=== PATIENT | female | born 1950 | race Two or more races ===

== ENCOUNTER 2020-02-07 13:35 | Inpatient (IN) | payer OTHER ==
[~2020-02-07] VITALS: Ht 167.6 cm; Wt 65.4 kg
[2020-02-07] MEDS ORDERED: dilTIAZem 25 MG/5 ML VIAL IV ONE (14:15)
[2020-02-07] MEDS ORDERED: methylPREDNISolone SOD SUCC 125 MG/2 ML VL IV ONE (14:15)
[2020-02-07] MEDS ORDERED: ALBUTEROL SULF 2.5 MG/0.5ML(0.5%) NEB SOLN HHN ONE (14:15)
[2020-02-07] MEDS ORDERED: IPRATROPIUM BROM 0.5 MG/2.5ML INH SOL HHN ONE (14:15)
[2020-02-07] MEDS ORDERED: AZITHROMYCIN 500MG/ 250ML 250 ML IV ONE (14:15)
[2020-02-07 14:23] LABS: Hematocrit 45.6 % (36.0-46.0); Hemoglobin 15.1 g/dL (12.2-16.2); Mean Corpuscular Hemoglobin 28.5 pg (28.0-32.0); Mean Corpuscular Hgb Conc. 33.1 g/dL (32.0-36.0); Mean Corpuscular Volume 86.2 fL (80.0-100.0); Platelet Count (auto) 185 10^3/uL (140-450); Red Blood Cells 5.29 10^6/uL (4.0-5.20); Red Cell Distribution Width 15.6 % (11.8-14.3); White Blood Cell 18.5 10^3/uL (4.4-10.8)
[2020-02-07 14:24] LABS: Albumin 3.8 g/dL (3.4-5.0); Anion Gap 12 (5-15); Blood Urea Nitrogen 30 mg/dL (7-18); Carbon Dioxide 24 mmol/L (21-32); Chloride 96 mmol/L (98-107); Glucose 137 mg/dL (74-106); Potassium 3.8 mmol/L (3.5-5.1); Sodium 132 mmol/L (136-145)
[2020-02-07 14:25] LABS: Basophils % (manual) 0 (0.0-2.0); Blast Cells 0; Eosinophils % (manual) 0 (0-7); Myelocytes % 0; Promyelocytes % 0; Reactive Lymphocytes 0
[2020-02-07 14:26] LABS: Alanine Aminotransferase 37 U/L (13-56); Aspartate Aminotransferase 65 U/L (15-37); GFR African American 39 mL/min; GFR Non-African American 32 mL/min
[2020-02-07 14:30] LABS: Alkaline Phosphatase 141 U/L (45-117); Bilirubin, Total 1.2 mg/dL (0.2-1.0); Total Protein 8.1 g/dL (6.4-8.2)
[2020-02-07 14:35] LABS: Lactic Acid w/Reflex 4.5 mmol/L (0.4-2.0)
[2020-02-07 14:37] LABS: INR 1.19 (0.9-1.15)
[2020-02-07] MEDS ORDERED: NITROGLYCERIN 0.4 MG SL TAB SL PRN (15:30)
[2020-02-07] MEDS ORDERED: MORPHINE SULF INJ 2 MG/ML SYRINGE 1ML IV PRN (15:30)
[2020-02-07 15:56] VITALS: BP 106/78
[2020-02-07 16:44] LABS: Band Neutrophils % (manual) 8; Lymphocytes % (manual) 3 (10.0-50.0); Metamyelocytes % 2; Monocytes % (manual) 2 (0-12)
[2020-02-07] MEDS ORDERED: ROFL1TAB2 PO (17:13)
[2020-02-07] MEDS ORDERED: LISI-706 PO (17:13)
[2020-02-07] MEDS ORDERED: ROSU5TAB5 PO (17:13)
[2020-02-07] MEDS ORDERED: ALBUAER3 IN (17:13)
[2020-02-07] MEDS ORDERED: FLUT1AER3 IN (17:13)
[2020-02-07] MEDS ORDERED: ZINC220C8 PO (17:15)
[2020-02-07] MEDS ORDERED: POM IN (17:18)
[2020-02-07 18:20] VITALS: BP 126/76
[2020-02-07 18:49] VITALS: BP 125/76
[2020-02-07] MEDS ORDERED: THIAMINE 100mg/ml INJ (200mg/2ml VIAL) IV ONE (19:00)
[2020-02-07] MEDS ORDERED: MORPHINE SULFATE 4 MG/ML SYR/VIAL IV PRN (19:00)
[2020-02-07] MEDS ORDERED: PIPERACILLIN-TAZOB 3.375GM 100 ML IV ONE (19:00)
[2020-02-07] MEDS ORDERED: VANCOMYCIN PER PHARMACY 0 MG IV SCH (19:00)
[2020-02-07] MEDS ORDERED: dilTIAZem 120MG ER CAP PO ONE (19:00)
[2020-02-07] MEDS ORDERED: LACTATED RINGER'S 1,000 ML IV ONE (19:00)
[2020-02-07] MEDS ORDERED: VANCOMYCIN 1GM/250ML 250 ML IV ONE (19:30)
[2020-02-07 20:00] LABS: Albumin 3.4 g/dL (3.4-5.0); Anion Gap 9 (5-15); Blood Urea Nitrogen 36 mg/dL (7-18); Calcium 8.2 mg/dL (8.5-10.1); Carbon Dioxide 25 mmol/L (21-32); Chloride 100 mmol/L (98-107); Glucose 132 mg/dL (74-106); Magnesium 2.3 mg/dL (1.6-2.6); Potassium 3.3 mmol/L (3.5-5.1); Sodium 134 mmol/L (136-145)
[2020-02-07 20:04] LABS: Lactic Acid w/Reflex 2.6 mmol/L (0.4-2.0)
[2020-02-07 20:05] LABS: INR 1.14 (0.9-1.15); Partial Thromboplastin Time 33.5 sec (23.0-31.2)
[2020-02-07 20:11] LABS: Alanine Aminotransferase 54 U/L (13-56); Alkaline Phosphatase 114 U/L (45-117); Aspartate Aminotransferase 74 U/L (15-37); BUN/Creatinine Ratio 22.6; Bilirubin, Total 0.8 mg/dL (0.2-1.0); GFR African American 41 mL/min; GFR Non-African American 34 mL/min; Lactate Dehydrogenase 264 U/L (84-246); Total Protein 7.2 g/dL (6.4-8.2)
[2020-02-07 20:29] LABS: CRP High Sensitivity > 19 mg/dL (< 0.3)
[2020-02-07] MEDS: SODIUM CHLORIDE 0.9% 1,000 ML IV SCH (20:32)
[2020-02-07] MEDS: ACETAMINOPHEN 325 MG TAB PO PRN (20:33)
[2020-02-07 22:00] VITALS: BP 117/71
[2020-02-07] MEDS ORDERED: BUDESONIDE (INHALATION) 180 MCG IH IN SCH (22:00)
[2020-02-07] MEDS: ALBUTEROL SULF HFA 90MCG INH 200DOSE IN SCH (22:00)
[2020-02-07] MEDS: ATORVASTATIN 20 MG TAB PO SCH (22:06)
[2020-02-07] MEDS: methylPREDNISolone SOD SUCC 40 MG/ML VL IV SCH (22:06)
[2020-02-08] MEDS: PIPERACILLIN-TAZOB 3.375GM 100 ML IV SCH ×5 (00:46→23:08)
[2020-02-08 01:59] LABS: Urine Bacteria FEW /hpf (None Seen); Urine Blood Negative /uL (Negative); Urine Hyaline Cast MOD /lpf (0 - 2); Urine Specific Gravity 1.011 (1.001-1.035); Urine WBC 5 /hpf (0 - 5)
[2020-02-08 02:07] VITALS: BP 106/72
[2020-02-08] MEDS ORDERED: METOPROLOL TARTRATE 1MG/1ML-5ML VIAL IV SCH ×2 (02:45→07:00)
[2020-02-08 04:54] VITALS: BP 95/62
[2020-02-08] MEDS: methylPREDNISolone SOD SUCC 40 MG/ML VL IV SCH ×3 (05:48→20:42)
[2020-02-08] MEDS: ACETAMINOPHEN 325 MG TAB PO PRN ×2 (05:50→17:06)
[2020-02-08] MEDS: ALBUTEROL SULF HFA 90MCG INH 200DOSE IN SCH (06:00)
[2020-02-08 07:25] LABS: Hematocrit 42.8 % (36.0-46.0); Hemoglobin 14.2 g/dL (12.2-16.2); Mean Corpuscular Hemoglobin 28.6 pg (28.0-32.0); Mean Corpuscular Hgb Conc. 33.2 g/dL (32.0-36.0); Mean Corpuscular Volume 86.2 fL (80.0-100.0); Platelet Count (auto) 112 10^3/uL (140-450); Red Blood Cells 4.96 10^6/uL (4.0-5.20); Red Cell Distribution Width 15.6 % (11.8-14.3); White Blood Cell 17.2 10^3/uL (4.4-10.8)
[2020-02-08 07:31] LABS: Band Neutrophils % (manual) 0; Basophils % (manual) 0 (0.0-2.0); Blast Cells 0; Eosinophils % (manual) 0 (0-7); Metamyelocytes % 0; Myelocytes % 0; Promyelocytes % 0; Reactive Lymphocytes 0
[2020-02-08 07:44] LABS: Lymphocytes % (manual) 8 (10.0-50.0); Monocytes % (manual) 4 (0-12)
[2020-02-08 07:49] LABS: Albumin 3.1 g/dL (3.4-5.0); BUN/Creatinine Ratio 28.8; Calcium 8.5 mg/dL (8.5-10.1)
[2020-02-08 07:53] LABS: Bilirubin, Total 0.6 mg/dL (0.2-1.0); Total Protein 6.9 g/dL (6.4-8.2)
[2020-02-08] MEDS: SODIUM CHLORIDE 0.9% 1,000 ML IV SCH ×2 (08:20→20:42)
[2020-02-08 09:00] VITALS: BP 96/71
[2020-02-08] MEDS ORDERED: ASCORBIC ACID 1,000 MG TAB PO SCH (10:00)
[2020-02-08] MEDS ORDERED: LISINOPRIL 5 MG TAB PO SCH (10:00)
[2020-02-08] MEDS ORDERED: ENOXAPARIN SOD 60 MG/0.6 ML SYRINGE SC SCH (10:00)
[2020-02-08] MEDS ORDERED: ASCORBIC ACID 500 MG TAB PO SCH (10:00)
[2020-02-08] MEDS ORDERED: CHOLECALCIFEROL (VITD3) 2,000 UNIT CAP PO SCH (10:00)
[2020-02-08] MEDS ORDERED: ZINC SULFATE 220mg CAP or TAB PO SCH (10:00)
[2020-02-08] MEDS ORDERED: CHOLECALCIFEROL (VITD3) 1,000UNIT=25mCg TAB PO SCH (10:00)
[2020-02-08] MEDS ORDERED: ALBUTEROL SULF 2.5 MG/0.5ML(0.5%) NEB SOLN NEB PRN ×2 (10:15→14:30)
[2020-02-08] MEDS ORDERED: IPRATROPIUM BROM 0.5 MG/2.5ML INH SOL NEB PRN (10:15)
[2020-02-08] MEDS: FAMOTIDINE (10MG/ML) 2ML VL IV SCH (10:21)
[2020-02-08] MEDS: THIAMINE 100mg/ml INJ (200mg/2ml VIAL) IV SCH (10:22)
[2020-02-08] MEDS: dilTIAZem 120MG ER CAP PO SCH (10:23)
[2020-02-08 13:00] VITALS: BP 119/53
[2020-02-08] MEDS ORDERED: DIGOXIN (250MCG/ML) 2 ML AMPULE IV ONE (14:00)
[2020-02-08] MEDS ORDERED: VANCOMYCIN 1GM/250ML 250 ML IV ONE (16:00)
[2020-02-08 17:00] VITALS: BP 100/71
[2020-02-08] MEDS: LEVALBUTEROL HCL 1.25 MG/3 ML NEB NEB SCH (18:51)
[2020-02-08] MEDS: IPRATROPIUM BROM 0.5 MG/2.5ML INH SOL NEB SCH (18:51)
[2020-02-08] MEDS: ATORVASTATIN 20 MG TAB PO SCH (20:42)
[2020-02-08] MEDS: METOPROLOL TARTRATE 25 MG TAB PO SCH (20:43)
[2020-02-08 22:00] VITALS: BP 109/65
[2020-02-08] MEDS: guaiFENesin-DM 100/10mg/5ml SYR PO PRN (23:08)
[2020-02-09] MEDS: LEVALBUTEROL HCL 1.25 MG/3 ML NEB NEB SCH ×4 (00:45→19:18)
[2020-02-09] MEDS: IPRATROPIUM BROM 0.5 MG/2.5ML INH SOL NEB SCH ×4 (00:45→19:18)
[2020-02-09 05:11] VITALS: BP 119/75
[2020-02-09 05:49] LABS: Hematocrit 42.7 % (36.0-46.0); Hemoglobin 14.3 g/dL (12.2-16.2); Mean Corpuscular Hgb Conc. 33.6 g/dL (32.0-36.0); Mean Corpuscular Volume 86.2 fL (80.0-100.0); Platelet Count (auto) 140 10^3/uL (140-450); Red Blood Cells 4.95 10^6/uL (4.0-5.20); Red Cell Distribution Width 15.3 % (11.8-14.3); White Blood Cell 18.9 10^3/uL (4.4-10.8)
[2020-02-09] MEDS: PIPERACILLIN-TAZOB 3.375GM 100 ML IV SCH ×3 (06:11→18:00)
[2020-02-09 06:18] LABS: BUN/Creatinine Ratio 34.8; Calcium 8.3 mg/dL (8.5-10.1)
[2020-02-09 06:45] LABS: Basophils % (manual) 0 (0.0-2.0); Blast Cells 0; Eosinophils % (manual) 0 (0-7); Metamyelocytes % 0; Myelocytes % 0; Promyelocytes % 0; Reactive Lymphocytes 0
[2020-02-09] MEDS ORDERED: dilTIAZem 25 MG/5 ML VIAL IV ONE (07:00)
[2020-02-09 07:33] LABS: Band Neutrophils % (manual) 1; Lymphocytes % (manual) 6 (10.0-50.0); Monocytes % (manual) 5 (0-12)
[2020-02-09 09:03] VITALS: BP 133/86
[2020-02-09] MEDS: METOPROLOL TARTRATE 25 MG TAB PO SCH ×2 (09:11→21:22)
[2020-02-09] MEDS: ENOXAPARIN SOD 60 MG/0.6 ML SYRINGE SC SCH ×2 (09:13→21:22)
[2020-02-09] MEDS: dilTIAZem 120MG ER CAP PO SCH (09:13)
[2020-02-09] MEDS: methylPREDNISolone SOD SUCC 40 MG/ML VL IV SCH ×2 (09:13→21:22)
[2020-02-09] MEDS: FAMOTIDINE (10MG/ML) 2ML VL IV SCH (09:13)
[2020-02-09] MEDS: THIAMINE 100mg/ml INJ (200mg/2ml VIAL) IV SCH (09:14)
[2020-02-09] MEDS: DOXYCYCLINE 100MG/250ML 250 ML IV SCH ×2 (10:00→21:32)
[2020-02-09] MEDS: SODIUM CHLORIDE 0.9% 1,000 ML IV SCH (11:00)
[2020-02-09 13:00] VITALS: BP 122/68
[2020-02-09 16:53] VITALS: BP 126/76
[2020-02-09] MEDS: ATORVASTATIN 20 MG TAB PO SCH (21:22)
[2020-02-09 22:00] VITALS: BP 128/72
[2020-02-10] VITALS (12 sets, daily range): BP systolic 118–145; BP diastolic 60–81
[2020-02-10] MEDS: PIPERACILLIN-TAZOB 3.375GM 100 ML IV SCH ×5 (00:06→23:48)
[2020-02-10] MEDS: SODIUM CHLORIDE 0.9% 1,000 ML IV SCH ×2 (00:20→14:33)
[2020-02-10] MEDS: IPRATROPIUM BROM 0.5 MG/2.5ML INH SOL NEB SCH ×4 (03:34→18:52)
[2020-02-10] MEDS: LEVALBUTEROL HCL 1.25 MG/3 ML NEB NEB SCH ×4 (03:34→18:52)
[2020-02-10 06:19] LABS: Basophils # (auto) 0 10 ^3/uL (0-0.2); Basophils % (auto) 0.1 % (0.0-2.0); Eosinophils # (auto) 0 10 ^3/uL (0-0.8); Hematocrit 41.7 % (36.0-46.0); Hemoglobin 13.5 g/dL (12.2-16.2); Lymphocytes # (auto) 0.2 10 ^3/uL (0.4-5.4); Lymphocytes % (auto) 1.2 % (10.0-50.0); Mean Corpuscular Hemoglobin 28.2 pg (28.0-32.0); Mean Corpuscular Hgb Conc. 32.5 g/dL (32.0-36.0); Monocytes # (auto) 0.9 10 ^3/uL (0-1.3); Monocytes % (auto) 6.2 % (0.0-12.0); Neutrophils # (auto) 14.1 10 ^3/uL (1.6-8.6); Neutrophils % (auto) 92.5 % (37.0-80.0); Nucleated Red Blood Cells % 0.2 %; Platelet Count (auto) 156 10^3/uL (140-450); Red Blood Cells 4.79 10^6/uL (4.0-5.20); Red Cell Distribution Width 15.7 % (11.8-14.3); White Blood Cell 15.2 10^3/uL (4.4-10.8)
[2020-02-10 06:32] LABS: Albumin 3.1 g/dL (3.4-5.0); Calcium 8.8 mg/dL (8.5-10.1); Potassium 4.7 mmol/L (3.5-5.1)
[2020-02-10 06:33] LABS: BUN/Creatinine Ratio 38.9
[2020-02-10 06:46] LABS: Bilirubin, Total 0.4 mg/dL (0.2-1.0); Total Protein 7.4 g/dL (6.4-8.2)
[2020-02-10] MEDS: DOXYCYCLINE 100MG/250ML 250 ML IV SCH ×2 (09:31→21:13)
[2020-02-10] MEDS: FAMOTIDINE (10MG/ML) 2ML VL IV SCH (09:31)
[2020-02-10] MEDS: methylPREDNISolone SOD SUCC 40 MG/ML VL IV SCH ×2 (09:31→20:51)
[2020-02-10] MEDS: METOPROLOL TARTRATE 25 MG TAB PO SCH ×2 (09:31→20:50)
[2020-02-10] MEDS: ENOXAPARIN SOD 60 MG/0.6 ML SYRINGE SC SCH ×2 (09:32→20:50)
[2020-02-10] MEDS ORDERED: DIGOXIN 0.125 MG TAB PO SCH (10:00)
[2020-02-10 10:31] LABS: Urine Bacteria FEW /hpf (None Seen); Urine Blood Negative /uL (Negative); Urine Hyaline Cast FEW /lpf (0 - 2); Urine Specific Gravity 1.018 (1.001-1.035); Urine WBC 2 /hpf (0 - 5)
[2020-02-10] MEDS: BUDESONIDE (INHALATION) 0.5 MG/2 ML NEB NEB SCH ×2 (10:42→18:52)
[2020-02-10] MEDS: ATORVASTATIN 20 MG TAB PO SCH (20:50)
[2020-02-11] VITALS (14 sets, daily range): BP systolic 134–175; BP diastolic 75–96
[2020-02-11] MEDS: LEVALBUTEROL HCL 1.25 MG/3 ML NEB NEB SCH ×4 (00:35→18:53)
[2020-02-11] MEDS: IPRATROPIUM BROM 0.5 MG/2.5ML INH SOL NEB SCH ×4 (00:36→18:54)
[2020-02-11 03:38] LABS: Basophils # (auto) 0 10 ^3/uL (0-0.2); Basophils % (auto) 0.1 % (0.0-2.0); Eosinophils # (auto) 0 10 ^3/uL (0-0.8); Hematocrit 38.1 % (36.0-46.0); Hemoglobin 12.2 g/dL (12.2-16.2); Lymphocytes # (auto) 0.2 10 ^3/uL (0.4-5.4); Lymphocytes % (auto) 2.3 % (10.0-50.0); Mean Corpuscular Hemoglobin 27.9 pg (28.0-32.0); Mean Corpuscular Hgb Conc. 32.1 g/dL (32.0-36.0); Mean Corpuscular Volume 86.7 fL (80.0-100.0); Monocytes # (auto) 0.5 10 ^3/uL (0-1.3); Monocytes % (auto) 5.9 % (0.0-12.0); Neutrophils # (auto) 7.9 10 ^3/uL (1.6-8.6); Neutrophils % (auto) 91.7 % (37.0-80.0); Nucleated Red Blood Cells % 0.3 %; Platelet Count (auto) 133 10^3/uL (140-450); Red Blood Cells 4.39 10^6/uL (4.0-5.20); Red Cell Distribution Width 15.9 % (11.8-14.3); White Blood Cell 8.6 10^3/uL (4.4-10.8)
[2020-02-11] MEDS: SODIUM CHLORIDE 0.9% 1,000 ML IV SCH (03:54)
[2020-02-11 03:57] LABS: Calcium 8.8 mg/dL (8.5-10.1); Potassium 4.2 mmol/L (3.5-5.1)
[2020-02-11 04:03] LABS: Albumin 2.8 g/dL (3.4-5.0); BUN/Creatinine Ratio 47.1; Bilirubin, Total 0.5 mg/dL (0.2-1.0); Total Protein 6.7 g/dL (6.4-8.2)
[2020-02-11] MEDS: PIPERACILLIN-TAZOB 3.375GM 100 ML IV SCH (05:36)
[2020-02-11] MEDS: BUDESONIDE (INHALATION) 0.5 MG/2 ML NEB NEB SCH ×2 (06:55→18:52)
[2020-02-11] MEDS ORDERED: METOPROLOL TARTRATE 1MG/1ML-5ML VIAL IV ONE (08:45)
[2020-02-11] MEDS: FAMOTIDINE (10MG/ML) 2ML VL IV SCH (09:30)
[2020-02-11] MEDS: methylPREDNISolone SOD SUCC 40 MG/ML VL IV SCH ×2 (09:30→20:57)
[2020-02-11] MEDS: ENOXAPARIN SOD 60 MG/0.6 ML SYRINGE SC SCH ×2 (09:30→20:58)
[2020-02-11] MEDS: DOXYCYCLINE 100MG/250ML 250 ML IV SCH (09:30)
[2020-02-11] MEDS: METOPROLOL TARTRATE 25 MG TAB PO SCH ×2 (09:31→20:58)
[2020-02-11] MEDS ORDERED: VANCOMYCIN PER PHARMACY 0 MG IV SCH (11:45)
[2020-02-11] MEDS: VANCOMYCIN 1GM/250ML 250 ML IV SCH (12:57)
[2020-02-11] MEDS: ATORVASTATIN 20 MG TAB PO SCH (20:58)
[2020-02-11] MEDS: LORazepam 2MG/ML-1ML VIAL IV PRN (23:26)
[2020-02-12] VITALS (9 sets, daily range): BP systolic 150–192; BP diastolic 73–93
[2020-02-12] MEDS: LEVALBUTEROL HCL 1.25 MG/3 ML NEB NEB SCH ×4 (00:31→18:34)
[2020-02-12] MEDS: IPRATROPIUM BROM 0.5 MG/2.5ML INH SOL NEB SCH ×4 (00:31→18:34)
[2020-02-12 03:42] LABS: Albumin 2.7 g/dL (3.4-5.0); Calcium 8.5 mg/dL (8.5-10.1); Potassium 4.2 mmol/L (3.5-5.1)
[2020-02-12 03:46] LABS: BUN/Creatinine Ratio 53.8; Bilirubin, Total 0.6 mg/dL (0.2-1.0); Total Protein 6.3 g/dL (6.4-8.2)
[2020-02-12] MEDS: BUDESONIDE (INHALATION) 0.5 MG/2 ML NEB NEB SCH ×2 (07:17→18:34)
[2020-02-12] MEDS ORDERED: ENALAPRILAT 1.25 MG/ML-1ML VIAL IV PRN (08:15)
[2020-02-12] MEDS: METOPROLOL TARTRATE 25 MG TAB PO SCH ×2 (10:00→21:06)
[2020-02-12] MEDS: methylPREDNISolone SOD SUCC 40 MG/ML VL IV SCH ×2 (11:04→21:06)
[2020-02-12] MEDS: ENOXAPARIN SOD 60 MG/0.6 ML SYRINGE SC SCH ×2 (11:05→21:07)
[2020-02-12] MEDS: levoFLOXacin 750MG 150 ML IV SCH (11:05)
[2020-02-12] MEDS: FAMOTIDINE (10MG/ML) 2ML VL IV SCH (11:05)
[2020-02-12] MEDS ORDERED: cloNIDine HCL 0.1 MG TAB PO PRN (11:15)
[2020-02-12] MEDS ORDERED: amLODIPine BESYLATE 5 MG TAB PO ONE (11:15)
[2020-02-12] MEDS: VANCOMYCIN 1GM/250ML 250 ML IV SCH (14:15)
[2020-02-12] MEDS: Ensure Enlive Strawberry 8oz Bottle PO SCH (18:00)
[2020-02-12] MEDS: guaiFENesin-DM 100/10mg/5ml SYR PO PRN (19:37)
[2020-02-12] MEDS: ATORVASTATIN 20 MG TAB PO SCH (21:06)
[2020-02-12] MEDS: LORazepam 2MG/ML-1ML VIAL IV PRN (21:07)
[2020-02-13] VITALS (8 sets, daily range): BP systolic 99–169; BP diastolic 60–86
[2020-02-13] MEDS: LEVALBUTEROL HCL 1.25 MG/3 ML NEB NEB SCH ×4 (00:10→18:28)
[2020-02-13] MEDS: IPRATROPIUM BROM 0.5 MG/2.5ML INH SOL NEB SCH ×4 (00:10→18:28)
[2020-02-13] MEDS: VANCOMYCIN 750mg/250ml 250 ML IV SCH ×2 (02:03→14:18)
[2020-02-13] MEDS: BUDESONIDE (INHALATION) 0.5 MG/2 ML NEB NEB SCH ×2 (07:03→18:28)
[2020-02-13] MEDS: Ensure Enlive Strawberry 8oz Bottle PO SCH ×2 (08:35→18:00)
[2020-02-13] MEDS: methylPREDNISolone SOD SUCC 40 MG/ML VL IV SCH ×2 (09:55→21:11)
[2020-02-13] MEDS: levoFLOXacin 750MG 150 ML IV SCH (09:55)
[2020-02-13] MEDS: FAMOTIDINE (10MG/ML) 2ML VL IV SCH (09:55)
[2020-02-13] MEDS: METOPROLOL TARTRATE 25 MG TAB PO SCH ×2 (09:56→21:12)
[2020-02-13] MEDS: ENOXAPARIN SOD 60 MG/0.6 ML SYRINGE SC SCH ×2 (09:57→21:12)
[2020-02-13] MEDS: amLODIPine BESYLATE 5 MG TAB PO SCH (09:57)
[2020-02-13] MEDS: ATORVASTATIN 20 MG TAB PO SCH (21:12)
[2020-02-13] MEDS: LORazepam 2MG/ML-1ML VIAL IV PRN (21:13)
[2020-02-13] MEDS: guaiFENesin-DM 100/10mg/5ml SYR PO PRN (21:13)
[2020-02-14] VITALS (9 sets, daily range): BP systolic 118–161; BP diastolic 54–79
[2020-02-14] MEDS: VANCOMYCIN 750mg/250ml 250 ML IV SCH (01:48)
[2020-02-14 04:09] LABS: BUN/Creatinine Ratio 41.3; Calcium 8.4 mg/dL (8.5-10.1); Potassium 4.8 mmol/L (3.5-5.1)
[2020-02-14 04:10] LABS: Basophils # (auto) 0 10 ^3/uL (0-0.2); Basophils % (auto) 0.1 % (0.0-2.0); Eosinophils # (auto) 0 10 ^3/uL (0-0.8); Hematocrit 34.4 % (36.0-46.0); Hemoglobin 10.9 g/dL (12.2-16.2); Lymphocytes # (auto) 0.5 10 ^3/uL (0.4-5.4); Lymphocytes % (auto) 3.6 % (10.0-50.0); Mean Corpuscular Hemoglobin 27.3 pg (28.0-32.0); Mean Corpuscular Hgb Conc. 31.8 g/dL (32.0-36.0); Mean Corpuscular Volume 85.8 fL (80.0-100.0); Monocytes # (auto) 0.7 10 ^3/uL (0-1.3); Monocytes % (auto) 4.7 % (0.0-12.0); Neutrophils # (auto) 13.4 10 ^3/uL (1.6-8.6); Neutrophils % (auto) 91.6 % (37.0-80.0); Platelet Count (auto) 199 10^3/uL (140-450); Red Blood Cells 4.02 10^6/uL (4.0-5.20); Red Cell Distribution Width 15.6 % (11.8-14.3); White Blood Cell 14.6 10^3/uL (4.4-10.8)
[2020-02-14] MEDS: IPRATROPIUM BROM 0.5 MG/2.5ML INH SOL NEB SCH ×3 (06:53→21:07)
[2020-02-14] MEDS: LEVALBUTEROL HCL 1.25 MG/3 ML NEB NEB SCH ×3 (06:53→21:07)
[2020-02-14] MEDS: Ensure Enlive Strawberry 8oz Bottle PO SCH ×2 (08:00→18:25)
[2020-02-14] MEDS: guaiFENesin-DM 100/10mg/5ml SYR PO PRN (09:24)
[2020-02-14] MEDS: methylPREDNISolone SOD SUCC 40 MG/ML VL IV SCH ×3 (10:37→22:00)
[2020-02-14] MEDS: LORazepam 2MG/ML-1ML VIAL IV PRN (10:37)
[2020-02-14] MEDS: ENOXAPARIN SOD 60 MG/0.6 ML SYRINGE SC SCH ×2 (10:37→22:00)
[2020-02-14] MEDS: FAMOTIDINE (10MG/ML) 2ML VL IV SCH ×2 (10:37→14:48)
[2020-02-14] MEDS: levoFLOXacin 750MG 150 ML IV SCH ×2 (10:37→14:47)
[2020-02-14] MEDS: amLODIPine BESYLATE 5 MG TAB PO SCH (10:38)
[2020-02-14] MEDS: METOPROLOL TARTRATE 25 MG TAB PO SCH ×2 (10:38→23:42)
[2020-02-14] MEDS: BUDESONIDE (INHALATION) 0.5 MG/2 ML NEB NEB SCH ×2 (11:33→21:07)
[2020-02-14] MEDS ORDERED: LORazepam 0.5 MG TAB PO PRN (12:00)
[2020-02-14] MEDS ORDERED: VANCOMYCIN 1GM/250ML 250 ML IV SCH (16:00)
[2020-02-14] MEDS ORDERED: levoFLOXacin 250 MG TAB PO ONE (16:45)
[2020-02-14] MEDS: ATORVASTATIN 20 MG TAB PO SCH (22:00)
[2020-02-14] MEDS ORDERED: FAMOTIDINE 20 MG TAB PO SCH (22:00)
[2020-02-14] MEDS: LINEZOLID 600MG TABLET PO SCH (23:43)
[2020-02-15] VITALS (7 sets, daily range): BP systolic 127–150; BP diastolic 48–75
[2020-02-15] MEDS: LEVALBUTEROL HCL 1.25 MG/3 ML NEB NEB SCH ×3 (01:50→14:13)
[2020-02-15] MEDS: IPRATROPIUM BROM 0.5 MG/2.5ML INH SOL NEB SCH ×3 (01:50→14:13)
[2020-02-15 03:18] LABS: Basophils # (auto) 0 10 ^3/uL (0-0.2); Eosinophils # (auto) 0 10 ^3/uL (0-0.8); Hematocrit 34.7 % (36.0-46.0); Hemoglobin 11.2 g/dL (12.2-16.2); Lymphocytes # (auto) 0.5 10 ^3/uL (0.4-5.4); Lymphocytes % (auto) 3.2 % (10.0-50.0); Mean Corpuscular Hemoglobin 27.7 pg (28.0-32.0); Mean Corpuscular Hgb Conc. 32.3 g/dL (32.0-36.0); Mean Corpuscular Volume 85.5 fL (80.0-100.0); Monocytes # (auto) 0.7 10 ^3/uL (0-1.3); Monocytes % (auto) 3.9 % (0.0-12.0); Neutrophils # (auto) 16.1 10 ^3/uL (1.6-8.6); Neutrophils % (auto) 92.9 % (37.0-80.0); Platelet Count (auto) 234 10^3/uL (140-450); Red Blood Cells 4.05 10^6/uL (4.0-5.20); Red Cell Distribution Width 15.8 % (11.8-14.3); White Blood Cell 17.3 10^3/uL (4.4-10.8)
[2020-02-15 03:37] LABS: Calcium 8.7 mg/dL (8.5-10.1); Potassium 4.5 mmol/L (3.5-5.1)
[2020-02-15 03:40] LABS: BUN/Creatinine Ratio 47.3
[2020-02-15] MEDS: Ensure Enlive Strawberry 8oz Bottle PO SCH (08:00)
[2020-02-15] MEDS: ACETAMINOPHEN 325 MG TAB PO PRN (09:06)
[2020-02-15] MEDS: ENOXAPARIN SOD 60 MG/0.6 ML SYRINGE SC SCH (10:00)
[2020-02-15] MEDS: methylPREDNISolone SOD SUCC 40 MG/ML VL IV SCH (10:00)
[2020-02-15] MEDS ORDERED: FAMOTIDINE 20 MG TAB PO SCH (10:00)
[2020-02-15] MEDS ORDERED: levoFLOXacin 250 MG TAB PO SCH (10:00)
[2020-02-15] MEDS: METOPROLOL TARTRATE 25 MG TAB PO SCH (10:09)
[2020-02-15] MEDS: amLODIPine BESYLATE 5 MG TAB PO SCH (10:10)
[2020-02-15] MEDS ORDERED: ASPI81CH43 PO (10:40)
[2020-02-15] MEDS ORDERED: AMLO10TA13 PO (10:40)
[2020-02-15] MEDS ORDERED: ATOR20TA50 PO (10:40)
[2020-02-15] MEDS ORDERED: MET50T PO (10:40)
[2020-02-15] MEDS: BUDESONIDE (INHALATION) 0.5 MG/2 ML NEB NEB SCH (11:39)
[2020-02-15] MEDS: LINEZOLID 600MG TABLET PO SCH (14:56)
== END 2020-02-15 15:20 | disposition home health service (06) | DRG 871 ==
LOC: ER 13:35 → EDBD 13:35 → TELE 13:36 → TELE-EAST 18:38 → TELE-WESTW 02-08 08:09 → DOU IN ICU 02-10 10:40
PROVIDERS: ADMIT Hospitalist; ATTEND Internal Medicine
PROC: 5A09357 Assistance with Respiratory Ventilation, Less than 24 Consecutive Hours, Continuous Positive Airway Pressure (ICD-10-PCS; principal; 2020-02-14)
DX: A41.9 Sepsis, unspecified organism (principal); J96.22 Acute and chronic respiratory failure with hypercapnia; J15.212 Pneumonia due to Methicillin resistant Staphylococcus aureus; E43 Unspecified severe protein-calorie malnutrition; N17.0 Acute kidney failure with tubular necrosis; I48.20 Chronic atrial fibrillation, unspecified; R04.2 Hemoptysis; I13.0 Hypertensive heart and chronic kidney disease with heart failure and stage 1 through stage 4 chronic kidney disease, or unspecified chronic kidney disease; R64 Cachexia; D68.69 Other thrombophilia; Z20.828 Contact with and (suspected) exposure to other viral communicable diseases; I50.9 Heart failure, unspecified; E87.6 Hypokalemia; E78.5 Hyperlipidemia, unspecified; N18.9 Chronic kidney disease, unspecified; I27.21 Secondary pulmonary arterial hypertension; F17.200 Nicotine dependence, unspecified, uncomplicated; G47.30 Sleep apnea, unspecified; K75.9 Inflammatory liver disease, unspecified; J43.9 Emphysema, unspecified; I25.9 Chronic ischemic heart disease, unspecified; Z88.5 Allergy status to narcotic agent; Z80.1 Family history of malignant neoplasm of trachea, bronchus and lung; Z95.1 Presence of aortocoronary bypass graft; Z82.49 Family history of ischemic heart disease and other diseases of the circulatory system; Z83.3 Family history of diabetes mellitus
CPT/HCPCS: 36415; 36600; 70450; 71045; 71250; 80048; 80053; 80202; 81001; 82565; 82728; 82805; 82962; 83605; 83615; 83735; 83880; 84443; 84484; 85007; 85025; 85027; 85379; 85610; 85730; 86141; 86850; 86900; 86901; 87040; 87070; 87077; 87081; 87086; 87186; 87205; 87426; 92610; 93005; 93306; 94640; 94660; 96365; 96375; G0378; J1956; J2543; J3490

== ENCOUNTER 2023-03-07 15:11 | Inpatient (IN) | payer BC, OTHER ==
[2023-03-07] VITALS (12 sets, daily range): BP systolic 107–159; BP diastolic 58–103; PULSE 71–139; RESP 18; TEMP 99.9–100.4; O2SAT 95–100
[~2023-03-07] VITALS: Ht 162.6 cm; Wt 77.4 kg
[~2023-03-07 15:11] MED LIST: ALBUAER3 IN; AMLO1TAB23 PO; ASPI81CH43 PO; ATOR20TA50 PO; FLUT1AER3 IN; MET50T PO; POM IN; ROFL1TAB2 PO; ROSU5TAB5 PO; ZINC220C8 PO
[2023-03-07] MEDS ORDERED: ETOMIDATE (2MG/ML) 20ML VIAL IV ONE ×2 (15:16→15:30)
[2023-03-07] MEDS ORDERED: ROCURONIUM 10MG/ML 10ML VIAL IV ONE ×2 (15:17→15:30)
[2023-03-07] MEDS ORDERED: MIDAZOLAM DRIP 50 mg/50mL 50 ML IV ONE (15:17)
[2023-03-07] MEDS: MIDAZOLAM DRIP 50 mg/50mL 50 ML IV SCH (15:38)
[2023-03-07 15:50] LABS: Basophils # (auto) 0 10 ^3/uL (0-0.2); Basophils % (auto) 0.3 % (0.0-2.0); Eosinophils # (auto) 0.1 10 ^3/uL (0-0.8); Eosinophils % (auto) 0.4 % (0.0-7.0); Hematocrit 39.4 % (36.0-46.0); Hemoglobin 12.5 g/dL (12.2-16.2); Lymphocytes # (auto) 2.4 10 ^3/uL (0.4-5.4); Lymphocytes % (auto) 20.1 % (10.0-50.0); Mean Corpuscular Hemoglobin 27.6 pg (28.0-32.0); Mean Corpuscular Hgb Conc. 31.8 g/dL (32.0-36.0); Mean Corpuscular Volume 86.6 fL (80.0-100.0); Monocytes # (auto) 0.9 10 ^3/uL (0-1.3); Monocytes % (auto) 7.6 % (0.0-12.0); Neutrophils # (auto) 8.7 10 ^3/uL (1.6-8.6); Neutrophils % (auto) 71.6 % (37.0-80.0); Nucleated Red Blood Cells % 0.1 %; Red Blood Cells 4.55 10^6/uL (4.0-5.20); Red Cell Distribution Width 17.8 % (11.8-14.3); White Blood Cell 12.1 10^3/uL (4.4-10.8)
[2023-03-07 16:06] LABS: INR 1.08 (0.9-1.15); Partial Thromboplastin Time 26.2 SEC (24.5-34.5); Prothrombin Time 11.3 sec (9.3-11.8)
[2023-03-07 16:08] LABS: Alanine Aminotransferase 22 U/L (7-40); Albumin 4.5 g/dL (3.2-4.8); Alkaline Phosphatase 129 U/L (46-116); Anion Gap 9 (5-15); Aspartate Aminotransferase 25 U/L (13-40); BUN/Creatinine Ratio 17.1 (10.0-20.0); Bilirubin, Total 0.5 mg/dL (0.2-1.0); Blood Urea Nitrogen 13 mg/dL (9-23); Calcium 9.2 mg/dL (8.5-10.1); Carbon Dioxide 29 mmol/L (20-30); Chloride 103 mmol/L (98-107); Glucose 117 mg/dL (74-106); Potassium 3.7 mmol/L (3.5-5.1); Sodium 141 mmol/L (136-145)
[2023-03-07 16:09] LABS: Total Protein 6.7 g/dL (5.7-8.2)
[2023-03-07] MEDS ORDERED: PIPERACILLIN-TAZOB 3.375GM 100 ML IV ONE (16:45)
[2023-03-07] MEDS: ACETAMINOPHEN 650 mg PER 20.3 mL UD PO PRN ×2 (16:49→23:43)
[2023-03-07] MEDS ORDERED: MORPHINE SULFATE INJ 2 MG/ml SYRG IV PRN (17:15)
[2023-03-07] MEDS ORDERED: ALBUTEROL SULF 2.5 MG/0.5ML(0.5%) NEB SOLN NEB PRN (17:15)
[2023-03-07] MEDS ORDERED: NITROGLYCERIN 0.4 MG SL TAB SL PRN (17:15)
[2023-03-07 17:18] LABS: Base Excess 2.4 mmol/L (-2.0-2.0)
[2023-03-07 18:05] LABS: COVID19 ANTIGEN SOFIA FIA NEGATIVE (NEGATIVE)
[2023-03-07 18:06] LABS: Rapid Influenza A Negative (Negative); Rapid Influenza B Negative (Negative)
[2023-03-07] MEDS: methylPREDNISolone SOD SUCC 40 MG/ML VL IV SCH (22:35)
[2023-03-07] MEDS: METOPROLOL TARTRATE 50 MG TAB PO SCH (22:35)
[2023-03-07] MEDS: PIPERACILLIN-TAZOB 3.375GM 100 ML IV SCH (23:43)
[2023-03-08] VITALS (115 sets, daily range): BP systolic 86–161; BP diastolic 53–100; PULSE 64–108; RESP 12–27; TEMP 97.2–100.2; O2SAT 95–100
[2023-03-08] MEDS: MIDAZOLAM DRIP 50 mg/50mL 50 ML IV SCH ×2 (01:42→08:57)
[2023-03-08 04:12] LABS: Basophils # (auto) 0 10 ^3/uL (0-0.2); Basophils % (auto) 0.3 % (0.0-2.0); Eosinophils # (auto) 0 10 ^3/uL (0-0.8); Eosinophils % (auto) 0.1 % (0.0-7.0); Hematocrit 30.1 % (36.0-46.0); Lymphocytes # (auto) 0.5 10 ^3/uL (0.4-5.4); Lymphocytes % (auto) 5.8 % (10.0-50.0); Mean Corpuscular Hemoglobin 28.6 pg (28.0-32.0); Mean Corpuscular Hgb Conc. 33.2 g/dL (32.0-36.0); Mean Corpuscular Volume 86.1 fL (80.0-100.0); Monocytes # (auto) 0.2 10 ^3/uL (0-1.3); Monocytes % (auto) 2.4 % (0.0-12.0); Neutrophils # (auto) 7.4 10 ^3/uL (1.6-8.6); Neutrophils % (auto) 91.4 % (37.0-80.0); Red Blood Cells 3.49 10^6/uL (4.0-5.20); Red Cell Distribution Width 17.8 % (11.8-14.3); White Blood Cell 8.1 10^3/uL (4.4-10.8)
[2023-03-08 04:16] LABS: Chloride 102 mmol/L (98-107); Potassium 3.4 mmol/L (3.5-5.1); Sodium 138 mmol/L (136-145)
[2023-03-08 04:17] LABS: Anion Gap 6 (5-15); Calcium 8.3 mg/dL (8.5-10.1); Carbon Dioxide 30 mmol/L (20-30)
[2023-03-08 04:22] LABS: BUN/Creatinine Ratio 18.4 (10.0-20.0); Blood Urea Nitrogen 14 mg/dL (9-23); Glucose 143 mg/dL (74-106)
[2023-03-08] MEDS ORDERED: NOREPINEPHRINE 8 MG/250ML KIT 250 ML IV SCH (04:45)
[2023-03-08] MEDS: methylPREDNISolone SOD SUCC 40 MG/ML VL IV SCH ×3 (05:27→21:28)
[2023-03-08] MEDS: PIPERACILLIN-TAZOB 3.375GM 100 ML IV SCH ×4 (05:28→23:10)
[2023-03-08] MEDS ORDERED: SODIUM CHLORIDE 0.9% 1,000 ML IV ONE (06:15)
[2023-03-08] MEDS: SODIUM CHLORIDE 0.9% 1,000 ML IV SCH ×3 (06:23→20:22)
[2023-03-08 07:57] LABS: Base Excess -0.9 mmol/L (-2.0-2.0)
[2023-03-08] MEDS: METOPROLOL TARTRATE 50 MG TAB PO SCH (10:00)
[2023-03-08] MEDS: POTASSIUM CHL 20MEQ/100ML 100 ML IV SCH ×2 (11:30→13:30)
[2023-03-08] MEDS ORDERED: ENOXAPARIN SOD 30 MG/0.3 ML SYRINGE SC ONE (11:30)
[2023-03-08] MEDS ORDERED: PRE1T GT (12:21)
[2023-03-08] MEDS ORDERED: PAR20T PO (12:43)
[2023-03-08] MEDS ORDERED: LISI20TA56 PO (12:43)
[2023-03-08] MEDS ORDERED: HYDR12.59 PO (12:43)
[2023-03-08] MEDS: APIXABAN 5 MG TAB PO SCH (21:28)
[2023-03-09] VITALS (106 sets, daily range): BP systolic 95–163; BP diastolic 57–121; PULSE 76–132; RESP 17–54; TEMP 78.1–99.5; O2SAT 65–100
[2023-03-09] MEDS: MIDAZOLAM DRIP 50 mg/50mL 50 ML IV SCH (01:23)
[2023-03-09 04:01] LABS: Basophils # (auto) 0 10 ^3/uL (0-0.2); Basophils % (auto) 0.1 % (0.0-2.0); Eosinophils # (auto) 0 10 ^3/uL (0-0.8); Eosinophils % (auto) 0.3 % (0.0-7.0); Hematocrit 31.9 % (36.0-46.0); Hemoglobin 10.3 g/dL (12.2-16.2); Lymphocytes # (auto) 0.5 10 ^3/uL (0.4-5.4); Lymphocytes % (auto) 6.5 % (10.0-50.0); Mean Corpuscular Hemoglobin 27.5 pg (28.0-32.0); Mean Corpuscular Hgb Conc. 32.3 g/dL (32.0-36.0); Mean Corpuscular Volume 85.3 fL (80.0-100.0); Monocytes # (auto) 0.2 10 ^3/uL (0-1.3); Neutrophils # (auto) 6.9 10 ^3/uL (1.6-8.6); Neutrophils % (auto) 90.1 % (37.0-80.0); Red Blood Cells 3.74 10^6/uL (4.0-5.20); Red Cell Distribution Width 17.4 % (11.8-14.3); White Blood Cell 7.7 10^3/uL (4.4-10.8)
[2023-03-09 04:20] LABS: Chloride 108 mmol/L (98-107); Potassium 3.9 mmol/L (3.5-5.1); Sodium 140 mmol/L (136-145)
[2023-03-09 04:26] LABS: BUN/Creatinine Ratio 24.2 (10.0-20.0); Blood Urea Nitrogen 16 mg/dL (9-23); Glucose 138 mg/dL (74-106)
[2023-03-09 04:55] LABS: Anion Gap 7 (5-15); Carbon Dioxide 25 mmol/L (20-30)
[2023-03-09] MEDS: methylPREDNISolone SOD SUCC 40 MG/ML VL IV SCH ×3 (05:19→20:54)
[2023-03-09] MEDS: PIPERACILLIN-TAZOB 3.375GM 100 ML IV SCH ×2 (05:19→12:06)
[2023-03-09] MEDS: SODIUM CHLORIDE 0.9% 1,000 ML IV SCH ×2 (05:27→13:42)
[2023-03-09] MEDS ORDERED: VANCOMYCIN PER PHARMACY 0 MG IV SCH (07:15)
[2023-03-09 07:23] LABS: Base Excess -0.2 mmol/L (-2.0-2.0)
[2023-03-09] MEDS ORDERED: VANCOMYCIN 1GM/250ML 250 ML IV ONE (08:15)
[2023-03-09] MEDS: APIXABAN 5 MG TAB PO SCH ×2 (10:17→22:00)
[2023-03-09] MEDS: dilTIAZem 120MG ER CAP PO SCH (10:17)
[2023-03-09] MEDS ORDERED: LORazepam 2MG/ML-1ML VIAL IV PRN (12:00)
[2023-03-09] MEDS ORDERED: ALBUTEROL MEDNEB 2.5 mg/3ml NEB NEB SCH (12:00)
[2023-03-09] MEDS ORDERED: ONDANSETRON HCL 4 MG/2 ML VIAL ONE (12:25)
[2023-03-09] MEDS ORDERED: ONDANSETRON HCL 4 MG/2 ML VIAL IV PRN (12:30)
[2023-03-09] MEDS: IPRATROPIUM BROM 0.5 MG/2.5ML INH SOL NEB SCH ×2 (13:44→18:47)
[2023-03-09] MEDS ORDERED: EPINEPHrine HCL 0.5 ML NEB NEB ONE (14:00)
[2023-03-09] MEDS ORDERED: EPINEPHrine HCL 0.5 ML NEB ONE (14:10)
[2023-03-09] MEDS ORDERED: ALBUTEROL MEDNEB 2.5 mg/3ml NEB ONE (14:20)
[2023-03-09] MEDS ORDERED: LEVALBUTEROL HCL 1.25 MG/3 ML NEB ONE (14:42)
[2023-03-09] MEDS: LEVALBUTEROL HCL 1.25 MG/3 ML NEB NEB SCH ×2 (14:42→18:47)
[2023-03-09 15:05] LABS: Base Excess -2.8 mmol/L (-2.0-2.0)
[2023-03-09] MEDS ORDERED: LORazepam 2MG/ML-1ML VIAL IV ONE (15:45)
[2023-03-09 16:26] LABS: Base Excess -4.3 mmol/L (-2.0-2.0)
[2023-03-09 16:42] LABS: Base Excess -4.3 mmol/L (-2.0-2.0)
[2023-03-09] MEDS ORDERED: PIPERACILLIN-TAZOB 3.375GM 100 ML IV SCH (18:00)
[2023-03-09] MEDS: ACETYLCYSTEINE 20%(200MG/ML) SOL 4ML NEB SCH (18:48)
[2023-03-09] MEDS: LORazepam 2MG/ML-1ML VIAL IV PRN (20:54)
[2023-03-10] VITALS (114 sets, daily range): BP systolic 97–155; BP diastolic 42–90; PULSE 85–165; RESP 11–51; TEMP 95.2–99.7; O2SAT 87–100
[2023-03-10] MEDS: LEVALBUTEROL HCL 1.25 MG/3 ML NEB NEB SCH ×3 (00:24→12:52)
[2023-03-10] MEDS: IPRATROPIUM BROM 0.5 MG/2.5ML INH SOL NEB SCH ×4 (00:24→18:05)
[2023-03-10] MEDS: ACETYLCYSTEINE 20%(200MG/ML) SOL 4ML NEB SCH ×4 (00:25→18:05)
[2023-03-10] MEDS: LORazepam 2MG/ML-1ML VIAL IV PRN ×2 (01:57→08:12)
[2023-03-10] MEDS ORDERED: PIPERACILLIN-TAZOB 3.375GM 100 ML IV SCH (02:00)
[2023-03-10] MEDS ORDERED: AMIODARONE BOLUS KIT 100 ML IV ONE ×2 (03:15→04:43)
[2023-03-10] MEDS ORDERED: dilTIAZem 25 MG/5 ML VIAL IV ONE ×2 (03:15→03:40)
[2023-03-10] MEDS ORDERED: AMIODARONE 450mg/250ml AE 250 ML IV SCH (03:30)
[2023-03-10] MEDS: SODIUM CHLORIDE 0.9% 1,000 ML IV SCH ×3 (03:58→22:19)
[2023-03-10 04:10] LABS: Basophils # (auto) 0 10 ^3/uL (0-0.2); Eosinophils # (auto) 0 10 ^3/uL (0-0.8); Hematocrit 30.2 % (36.0-46.0); Hemoglobin 9.7 g/dL (12.2-16.2); Lymphocytes # (auto) 0.1 10 ^3/uL (0.4-5.4); Lymphocytes % (auto) 1.5 % (10.0-50.0); Mean Corpuscular Hemoglobin 27.9 pg (28.0-32.0); Mean Corpuscular Hgb Conc. 32.1 g/dL (32.0-36.0); Mean Corpuscular Volume 86.9 fL (80.0-100.0); Monocytes # (auto) 0.4 10 ^3/uL (0-1.3); Monocytes % (auto) 3.9 % (0.0-12.0); Neutrophils # (auto) 8.9 10 ^3/uL (1.6-8.6); Neutrophils % (auto) 94.6 % (37.0-80.0); Nucleated Red Blood Cells % 0.1 %; Red Blood Cells 3.47 10^6/uL (4.0-5.20); Red Cell Distribution Width 17.5 % (11.8-14.3); White Blood Cell 9.4 10^3/uL (4.4-10.8)
[2023-03-10 04:19] LABS: Chloride 113 mmol/L (98-107); Potassium 3.8 mmol/L (3.5-5.1)
[2023-03-10 04:20] LABS: Anion Gap 6 (5-15); Carbon Dioxide 27 mmol/L (20-30); Sodium 146 mmol/L (136-145)
[2023-03-10 04:26] LABS: BUN/Creatinine Ratio 22.1 (10.0-20.0); Blood Urea Nitrogen 15 mg/dL (9-23); Glucose 168 mg/dL (74-106)
[2023-03-10] MEDS: methylPREDNISolone SOD SUCC 40 MG/ML VL IV SCH ×3 (05:19→21:07)
[2023-03-10 06:29] LABS: Base Excess -4.3 mmol/L (-2.0-2.0)
[2023-03-10] MEDS: ACETAMINOPHEN 650 mg PER 20.3 mL UD PO PRN (07:51)
[2023-03-10] MEDS: VANCOMYCIN 1GM/250ML 250 ML IV SCH (07:52)
[2023-03-10] MEDS: MEROPENEM 1GM IVPB 100 ML IV SCH ×3 (08:01→21:07)
[2023-03-10] MEDS ORDERED: DIGOXIN (250MCG/ML) 2 ML AMPULE IV ONE (09:15)
[2023-03-10] MEDS: dilTIAZem 120MG ER CAP PO SCH (10:00)
[2023-03-10] MEDS ORDERED: ETOMIDATE (2MG/ML) 20ML VIAL IV ONE ×2 (10:24→10:30)
[2023-03-10] MEDS ORDERED: SUCCINYLCHOLINE CHLORIDE 20 MG/ML 10ML VIAL IV ONE ×2 (10:24→10:30)
[2023-03-10] MEDS ORDERED: PROPOFOL 100 ML IV ONE (10:24)
[2023-03-10] MEDS: APIXABAN 5 MG TAB PO SCH ×2 (12:49→21:07)
[2023-03-10] MEDS: MIDAZOLAM DRIP 50 mg/50mL 50 ML IV SCH ×2 (12:52→19:53)
[2023-03-10] MEDS: AMIODARONE 450mg/250ml AE 250 ML IV SCH (13:11)
[2023-03-10 13:29] LABS: Base Excess -3.7 mmol/L (-2.0-2.0)
[2023-03-10] MEDS ORDERED: ALBUTEROL MEDNEB 2.5 mg/3ml NEB NEB PRN (15:00)
[2023-03-10] MEDS: PROPOFOL 100 ML IV SCH (15:53)
[2023-03-10] MEDS: NOREPINEPHRINE 8 MG/250ML KIT 250 ML IV SCH (19:51)
[2023-03-10] MEDS: fentaNYL Drip 2500mCg/250mlNS 250 ML IV SCH (19:51)
[2023-03-11] VITALS (110 sets, daily range): BP systolic 114–183; BP diastolic 63–95; PULSE 85–131; RESP 20–27; TEMP 97.5–98.6; O2SAT 85–100
[2023-03-11] MEDS: AMIODARONE 450mg/250ml AE 250 ML IV SCH ×3 (00:30→20:05)
[2023-03-11] MEDS: IPRATROPIUM BROM 0.5 MG/2.5ML INH SOL NEB SCH ×4 (00:50→18:24)
[2023-03-11] MEDS: LEVALBUTEROL HCL 1.25 MG/3 ML NEB NEB SCH ×4 (00:50→18:24)
[2023-03-11] MEDS: ACETYLCYSTEINE 20%(200MG/ML) SOL 4ML NEB SCH ×4 (00:50→18:25)
[2023-03-11 04:02] LABS: Anion Gap 6 (5-15); Carbon Dioxide 25 mmol/L (20-30); Chloride 113 mmol/L (98-107); Potassium 3.8 mmol/L (3.5-5.1); Sodium 144 mmol/L (136-145)
[2023-03-11 04:03] LABS: Calcium 7.9 mg/dL (8.7-10.4)
[2023-03-11 04:08] LABS: Blood Urea Nitrogen 13 mg/dL (9-23); Glucose 161 mg/dL (74-106)
[2023-03-11 04:15] LABS: Basophils # (auto) 0 10 ^3/uL (0-0.2); Basophils % (auto) 0.1 % (0.0-2.0); Eosinophils # (auto) 0 10 ^3/uL (0-0.8); Hematocrit 27.2 % (36.0-46.0); Hemoglobin 8.8 g/dL (12.2-16.2); Lymphocytes # (auto) 0.2 10 ^3/uL (0.4-5.4); Lymphocytes % (auto) 2.9 % (10.0-50.0); Mean Corpuscular Hemoglobin 27.9 pg (28.0-32.0); Mean Corpuscular Hgb Conc. 32.4 g/dL (32.0-36.0); Mean Corpuscular Volume 86.1 fL (80.0-100.0); Monocytes # (auto) 0.2 10 ^3/uL (0-1.3); Monocytes % (auto) 3.7 % (0.0-12.0); Neutrophils # (auto) 5.5 10 ^3/uL (1.6-8.6); Neutrophils % (auto) 93.3 % (37.0-80.0); Nucleated Red Blood Cells % 0.4 %; Red Blood Cells 3.16 10^6/uL (4.0-5.20); Red Cell Distribution Width 17.7 % (11.8-14.3); White Blood Cell 5.9 10^3/uL (4.4-10.8)
[2023-03-11] MEDS: PROPOFOL 100 ML IV SCH ×4 (04:49→23:13)
[2023-03-11] MEDS: MEROPENEM 1GM IVPB 100 ML IV SCH ×3 (05:38→22:20)
[2023-03-11] MEDS: methylPREDNISolone SOD SUCC 40 MG/ML VL IV SCH ×3 (05:38→22:20)
[2023-03-11] MEDS: hydrALAZINE HCL 20 MG/ML VL IV PRN (06:37)
[2023-03-11] MEDS: VANCOMYCIN 1GM/250ML 250 ML IV SCH (08:09)
[2023-03-11 08:46] LABS: Base Excess -3.7 mmol/L (-2.0-2.0)
[2023-03-11] MEDS: LABETALOL HCL 5 MG/ML 4ML SYRINGE IV PRN (08:58)
[2023-03-11] MEDS ORDERED: DIGOXIN (250MCG/ML) 2 ML AMPULE IV ONE (09:30)
[2023-03-11] MEDS: MIDAZOLAM DRIP 50 mg/50mL 50 ML IV SCH ×2 (10:00→22:34)
[2023-03-11] MEDS: METOPROLOL TARTRATE 25 MG TAB PO SCH ×2 (10:00→22:21)
[2023-03-11] MEDS: APIXABAN 5 MG TAB PO SCH ×2 (10:00→22:21)
[2023-03-11] MEDS: NOREPINEPHRINE 8 MG/250ML KIT 250 ML IV SCH (10:01)
[2023-03-11] MEDS: fentaNYL Drip 2500mCg/250mlNS 250 ML IV SCH (11:00)
[2023-03-11 11:08] LABS: Base Excess -3.1 mmol/L (-2.0-2.0)
[2023-03-11] MEDS: SODIUM CHLORIDE 0.9% 1,000 ML IV SCH (13:52)
[2023-03-12] VITALS (67 sets, daily range): BP systolic 113–161; BP diastolic 60–85; PULSE 82–103; RESP 20–28; TEMP 97.2–99.5; O2SAT 95–100
[2023-03-12] MEDS: ACETYLCYSTEINE 20%(200MG/ML) SOL 4ML NEB SCH ×4 (00:03→19:37)
[2023-03-12] MEDS: LEVALBUTEROL HCL 1.25 MG/3 ML NEB NEB SCH ×4 (00:04→19:37)
[2023-03-12] MEDS: IPRATROPIUM BROM 0.5 MG/2.5ML INH SOL NEB SCH ×4 (00:04→19:37)
[2023-03-12] MEDS: SODIUM CHLORIDE 0.9% 1,000 ML IV SCH ×3 (00:40→20:15)
[2023-03-12] MEDS: PROPOFOL 100 ML IV SCH (05:48)
[2023-03-12] MEDS: MEROPENEM 1GM IVPB 100 ML IV SCH ×3 (05:52→22:32)
[2023-03-12] MEDS: methylPREDNISolone SOD SUCC 40 MG/ML VL IV SCH ×3 (05:52→22:31)
[2023-03-12 07:44] LABS: Basophils # (auto) 0 10 ^3/uL (0-0.2); Eosinophils # (auto) 0 10 ^3/uL (0-0.8); Hematocrit 28.5 % (36.0-46.0); Hemoglobin 9.1 g/dL (12.2-16.2); Lymphocytes # (auto) 0.1 10 ^3/uL (0.4-5.4); Lymphocytes % (auto) 2.5 % (10.0-50.0); Mean Corpuscular Hemoglobin 27.5 pg (28.0-32.0); Mean Corpuscular Hgb Conc. 31.8 g/dL (32.0-36.0); Mean Corpuscular Volume 86.5 fL (80.0-100.0); Monocytes # (auto) 0.2 10 ^3/uL (0-1.3); Monocytes % (auto) 4.1 % (0.0-12.0); Neutrophils # (auto) 5.5 10 ^3/uL (1.6-8.6); Neutrophils % (auto) 93.4 % (37.0-80.0); Nucleated Red Blood Cells % 0.1 %; Red Blood Cells 3.29 10^6/uL (4.0-5.20); Red Cell Distribution Width 18.2 % (11.8-14.3); White Blood Cell 5.9 10^3/uL (4.4-10.8)
[2023-03-12 07:50] LABS: Chloride 114 mmol/L (98-107); Sodium 145 mmol/L (136-145)
[2023-03-12 07:51] LABS: Anion Gap 5 (5-15); Calcium 8.1 mg/dL (8.5-10.1); Carbon Dioxide 26 mmol/L (20-30)
[2023-03-12 07:56] LABS: BUN/Creatinine Ratio 33.3 (10.0-20.0); Blood Urea Nitrogen 21 mg/dL (9-23); Glucose 166 mg/dL (74-106)
[2023-03-12 08:26] LABS: Base Excess -0.9 mmol/L (-2.0-2.0)
[2023-03-12] MEDS: APIXABAN 5 MG TAB PO SCH ×2 (08:27→22:32)
[2023-03-12] MEDS: VANCOMYCIN 1GM/250ML 250 ML IV SCH ×2 (08:27→20:00)
[2023-03-12] MEDS: METOPROLOL TARTRATE 25 MG TAB PO SCH ×2 (08:27→22:32)
[2023-03-12] MEDS: NOREPINEPHRINE 8 MG/250ML KIT 250 ML IV SCH (10:45)
[2023-03-12] MEDS: fentaNYL Drip 2500mCg/250mlNS 250 ML IV SCH (11:00)
[2023-03-12] MEDS: PANTOPRAZOLE 40 MG/10 ML VIAL INJ IV SCH (14:37)
[2023-03-12 18:17] LABS: Base Excess -0.2 mmol/L (-2.0-2.0)
[2023-03-13] VITALS (94 sets, daily range): BP systolic 126–178; BP diastolic 62–94; PULSE 68–129; RESP 19–40; TEMP 98.6–99.7; O2SAT 91–100
[2023-03-13] MEDS: PROPOFOL 100 ML IV SCH ×2 (00:21→19:29)
[2023-03-13] MEDS: ACETYLCYSTEINE 20%(200MG/ML) SOL 4ML NEB SCH ×5 (00:28→23:58)
[2023-03-13] MEDS: IPRATROPIUM BROM 0.5 MG/2.5ML INH SOL NEB SCH ×5 (00:28→23:58)
[2023-03-13] MEDS: LEVALBUTEROL HCL 1.25 MG/3 ML NEB NEB SCH ×5 (00:28→23:58)
[2023-03-13 04:31] LABS: Chloride 115 mmol/L (98-107); Potassium 4.4 mmol/L (3.5-5.1); Sodium 148 mmol/L (136-145)
[2023-03-13 04:32] LABS: Anion Gap 7 (5-15); Calcium 8.5 mg/dL (8.5-10.1); Carbon Dioxide 26 mmol/L (20-30)
[2023-03-13 04:34] LABS: Basophils # (auto) 0 10 ^3/uL (0-0.2); Basophils % (auto) 0.1 % (0.0-2.0); Eosinophils # (auto) 0 10 ^3/uL (0-0.8); Hematocrit 30.8 % (36.0-46.0); Hemoglobin 9.7 g/dL (12.2-16.2); Lymphocytes # (auto) 0.2 10 ^3/uL (0.4-5.4); Lymphocytes % (auto) 2.4 % (10.0-50.0); Mean Corpuscular Hemoglobin 27.6 pg (28.0-32.0); Mean Corpuscular Hgb Conc. 31.7 g/dL (32.0-36.0); Mean Corpuscular Volume 87.2 fL (80.0-100.0); Monocytes # (auto) 0.3 10 ^3/uL (0-1.3); Monocytes % (auto) 3.7 % (0.0-12.0); Neutrophils % (auto) 93.8 % (37.0-80.0); Nucleated Red Blood Cells % 0.2 %; Red Blood Cells 3.53 10^6/uL (4.0-5.20); Red Cell Distribution Width 18.1 % (11.8-14.3); White Blood Cell 8.6 10^3/uL (4.4-10.8)
[2023-03-13 04:37] LABS: BUN/Creatinine Ratio 21.1 (10.0-20.0); Blood Urea Nitrogen 15 mg/dL (9-23); Glucose 141 mg/dL (74-106)
[2023-03-13] MEDS: hydrALAZINE HCL 20 MG/ML VL IV PRN (05:00)
[2023-03-13] MEDS: LORazepam 2MG/ML-1ML VIAL IV PRN (05:26)
[2023-03-13] MEDS: methylPREDNISolone SOD SUCC 40 MG/ML VL IV SCH ×3 (05:32→22:03)
[2023-03-13] MEDS: MEROPENEM 1GM IVPB 100 ML IV SCH ×3 (05:32→22:04)
[2023-03-13] MEDS: SODIUM CHLORIDE 0.9% 1,000 ML IV SCH ×2 (05:32→16:15)
[2023-03-13] MEDS: LABETALOL HCL 5 MG/ML 4ML SYRINGE IV PRN (07:04)
[2023-03-13 07:25] LABS: Base Excess -2.3 mmol/L (-2.0-2.0)
[2023-03-13] MEDS: APIXABAN 5 MG TAB PO SCH ×2 (10:33→22:04)
[2023-03-13] MEDS: PANTOPRAZOLE 40 MG/10 ML VIAL INJ IV SCH (10:33)
[2023-03-13] MEDS: METOPROLOL TARTRATE 25 MG TAB PO SCH ×2 (10:34→22:04)
[2023-03-13] MEDS: NOREPINEPHRINE 8 MG/250ML KIT 250 ML IV SCH (10:45)
[2023-03-13] MEDS: MIDAZOLAM DRIP 50 mg/50mL 50 ML IV SCH (11:00)
[2023-03-13] MEDS: fentaNYL Drip 2500mCg/250mlNS 250 ML IV SCH (11:00)
[2023-03-13] MEDS: VANCOMYCIN 1GM/250ML 250 ML IV SCH (12:13)
[2023-03-14] VITALS (106 sets, daily range): BP systolic 132–179; BP diastolic 66–142; PULSE 58–101; RESP 18–27; TEMP 84.7–99.7; O2SAT 93–100
[2023-03-14] MEDS: SODIUM CHLORIDE 0.9% 1,000 ML IV SCH (02:15)
[2023-03-14] MEDS: PROPOFOL 100 ML IV SCH ×3 (03:40→23:02)
[2023-03-14] MEDS: VANCOMYCIN 1GM/250ML 250 ML IV SCH ×2 (03:52→20:06)
[2023-03-14 04:21] LABS: Basophils # (auto) 0 10 ^3/uL (0-0.2); Basophils % (auto) 0.2 % (0.0-2.0); Eosinophils # (auto) 0 10 ^3/uL (0-0.8); Eosinophils % (auto) 0.1 % (0.0-7.0); Hematocrit 26.5 % (36.0-46.0); Hemoglobin 8.5 g/dL (12.2-16.2); Lymphocytes # (auto) 0.2 10 ^3/uL (0.4-5.4); Lymphocytes % (auto) 3.3 % (10.0-50.0); Mean Corpuscular Hemoglobin 27.7 pg (28.0-32.0); Mean Corpuscular Volume 86.7 fL (80.0-100.0); Monocytes # (auto) 0.2 10 ^3/uL (0-1.3); Monocytes % (auto) 3.9 % (0.0-12.0); Neutrophils # (auto) 5.6 10 ^3/uL (1.6-8.6); Neutrophils % (auto) 92.5 % (37.0-80.0); Nucleated Red Blood Cells % 0.1 %; Red Blood Cells 3.05 10^6/uL (4.0-5.20); Red Cell Distribution Width 17.7 % (11.8-14.3)
[2023-03-14 04:25] LABS: Anion Gap 8 (5-15); Carbon Dioxide 27 mmol/L (20-30); Chloride 117 mmol/L (98-107); Potassium 3.5 mmol/L (3.5-5.1); Sodium 152 mmol/L (136-145)
[2023-03-14 04:26] LABS: Calcium 7.2 mg/dL (8.5-10.1)
[2023-03-14 04:31] LABS: BUN/Creatinine Ratio 39.1 (10.0-20.0); Blood Urea Nitrogen 18 mg/dL (9-23); Glucose 122 mg/dL (74-106)
[2023-03-14] MEDS: IPRATROPIUM BROM 0.5 MG/2.5ML INH SOL NEB SCH ×3 (05:42→18:44)
[2023-03-14] MEDS: ACETYLCYSTEINE 20%(200MG/ML) SOL 4ML NEB SCH ×3 (05:42→18:45)
[2023-03-14] MEDS: LEVALBUTEROL HCL 1.25 MG/3 ML NEB NEB SCH ×3 (05:42→18:45)
[2023-03-14] MEDS: MEROPENEM 1GM IVPB 100 ML IV SCH ×3 (06:01→21:28)
[2023-03-14] MEDS: methylPREDNISolone SOD SUCC 40 MG/ML VL IV SCH ×3 (06:01→21:28)
[2023-03-14 07:05] LABS: Base Excess 1.1 mmol/L (-2.0-2.0)
[2023-03-14] MEDS: PANTOPRAZOLE 40 MG/10 ML VIAL INJ IV SCH (09:54)
[2023-03-14] MEDS: METOPROLOL TARTRATE 25 MG TAB PO SCH ×2 (09:55→21:28)
[2023-03-14] MEDS: APIXABAN 5 MG TAB PO SCH ×2 (09:55→21:28)
[2023-03-14] MEDS: NOREPINEPHRINE 8 MG/250ML KIT 250 ML IV SCH (10:45)
[2023-03-14] MEDS: fentaNYL Drip 2500mCg/250mlNS 250 ML IV SCH (11:00)
[2023-03-14] MEDS: MIDAZOLAM DRIP 50 mg/50mL 50 ML IV SCH (11:00)
[2023-03-14 11:47] LABS: Alanine Aminotransferase 16 U/L (7-40); Albumin 3.3 g/dL (3.2-4.8); Alkaline Phosphatase 77 U/L (46-116); Anion Gap 3 (5-15); Aspartate Aminotransferase 14 U/L (13-40); BUN/Creatinine Ratio 36.8 (10.0-20.0); Bilirubin, Total 0.4 mg/dL (0.2-1.0); Blood Urea Nitrogen 21 mg/dL (9-23); Calcium 8.6 mg/dL (8.7-10.4); Carbon Dioxide 31 mmol/L (20-30); Chloride 112 mmol/L (98-107); Glucose 131 mg/dL (74-106); Potassium 4.4 mmol/L (3.5-5.1); Total Protein 4.9 g/dL (5.7-8.2)
[2023-03-14] MEDS ORDERED: FREE WATER NG SCH (12:00)
[2023-03-14 12:14] LABS: Sodium 146 mmol/L (136-145)
[2023-03-14] MEDS: LABETALOL HCL 5 MG/ML 4ML SYRINGE IV PRN (14:39)
[2023-03-14] MEDS: FREE WATER NG SCH ×2 (20:06→23:03)
[2023-03-15] VITALS (109 sets, daily range): BP systolic 113–176; BP diastolic 54–111; PULSE 48–173; RESP 18–37; TEMP 98.1–100; O2SAT 83–100
[2023-03-15] MEDS: ACETYLCYSTEINE 20%(200MG/ML) SOL 4ML NEB SCH ×5 (00:35→23:50)
[2023-03-15] MEDS: LEVALBUTEROL HCL 1.25 MG/3 ML NEB NEB SCH ×5 (00:35→23:49)
[2023-03-15] MEDS: IPRATROPIUM BROM 0.5 MG/2.5ML INH SOL NEB SCH ×5 (00:35→23:50)
[2023-03-15 04:11] LABS: Basophils # (auto) 0 10 ^3/uL (0-0.2); Basophils % (auto) 0.1 % (0.0-2.0); Eosinophils # (auto) 0 10 ^3/uL (0-0.8); Hematocrit 29.9 % (36.0-46.0); Hemoglobin 9.6 g/dL (12.2-16.2); Lymphocytes # (auto) 0.2 10 ^3/uL (0.4-5.4); Lymphocytes % (auto) 3.2 % (10.0-50.0); Mean Corpuscular Hemoglobin 27.3 pg (28.0-32.0); Mean Corpuscular Hgb Conc. 32.1 g/dL (32.0-36.0); Monocytes # (auto) 0.3 10 ^3/uL (0-1.3); Monocytes % (auto) 3.9 % (0.0-12.0); Neutrophils # (auto) 6.2 10 ^3/uL (1.6-8.6); Neutrophils % (auto) 92.8 % (37.0-80.0); Nucleated Red Blood Cells % 0.1 %; Red Blood Cells 3.51 10^6/uL (4.0-5.20); Red Cell Distribution Width 17.5 % (11.8-14.3); White Blood Cell 6.7 10^3/uL (4.4-10.8)
[2023-03-15 04:30] LABS: Chloride 109 mmol/L (98-107); Potassium 4.1 mmol/L (3.5-5.1); Sodium 142 mmol/L (136-145)
[2023-03-15 04:31] LABS: Calcium 8.7 mg/dL (8.7-10.4)
[2023-03-15 04:36] LABS: BUN/Creatinine Ratio 39.6 (10.0-20.0); Blood Urea Nitrogen 21 mg/dL (9-23); Glucose 135 mg/dL (74-106)
[2023-03-15 05:11] LABS: Anion Gap 3 (5-15); Carbon Dioxide 30 mmol/L (20-30)
[2023-03-15] MEDS: FREE WATER NG SCH ×3 (05:17→18:00)
[2023-03-15] MEDS: MEROPENEM 1GM IVPB 100 ML IV SCH ×3 (05:34→21:51)
[2023-03-15] MEDS: methylPREDNISolone SOD SUCC 40 MG/ML VL IV SCH ×3 (05:35→21:51)
[2023-03-15] MEDS: hydrALAZINE HCL 20 MG/ML VL IV PRN (09:57)
[2023-03-15] MEDS: NOREPINEPHRINE 8 MG/250ML KIT 250 ML IV SCH (10:45)
[2023-03-15] MEDS: fentaNYL Drip 2500mCg/250mlNS 250 ML IV SCH ×2 (11:00→18:50)
[2023-03-15] MEDS: MIDAZOLAM DRIP 50 mg/50mL 50 ML IV SCH (11:00)
[2023-03-15] MEDS: APIXABAN 5 MG TAB PO SCH ×2 (11:28→21:51)
[2023-03-15] MEDS: PANTOPRAZOLE 40 MG/10 ML VIAL INJ IV SCH (11:28)
[2023-03-15] MEDS: METOPROLOL TARTRATE 25 MG TAB PO SCH ×2 (11:30→21:51)
[2023-03-15] MEDS: VANCOMYCIN 1GM/250ML 250 ML IV SCH (13:33)
[2023-03-15] MEDS: PROPOFOL 100 ML IV SCH ×2 (13:36→20:38)
[2023-03-16] VITALS (109 sets, daily range): BP systolic 102–150; BP diastolic 53–76; PULSE 44–82; RESP 13–25; TEMP 95.7–99; O2SAT 98–100
[2023-03-16] MEDS: FREE WATER NG SCH ×5 (00:13→23:35)
[2023-03-16] MEDS: PROPOFOL 100 ML IV SCH ×3 (03:23→23:35)
[2023-03-16] MEDS: VANCOMYCIN 1GM/250ML 250 ML IV SCH ×2 (03:47→20:06)
[2023-03-16 03:52] LABS: Chloride 108 mmol/L (98-107); Potassium 4.3 mmol/L (3.5-5.1); Sodium 144 mmol/L (136-145)
[2023-03-16 03:53] LABS: Anion Gap 5 (5-15); Calcium 8.7 mg/dL (8.5-10.1); Carbon Dioxide 31 mmol/L (20-30)
[2023-03-16 03:58] LABS: BUN/Creatinine Ratio 42.3 (10.0-20.0); Blood Urea Nitrogen 22 mg/dL (9-23); Glucose 143 mg/dL (74-106)
[2023-03-16 04:01] LABS: Basophils # (auto) 0 10 ^3/uL (0-0.2); Basophils % (auto) 0.1 % (0.0-2.0); Eosinophils # (auto) 0 10 ^3/uL (0-0.8); Hematocrit 29.8 % (36.0-46.0); Hemoglobin 9.7 g/dL (12.2-16.2); Lymphocytes # (auto) 0.1 10 ^3/uL (0.4-5.4); Lymphocytes % (auto) 2.4 % (10.0-50.0); Mean Corpuscular Hemoglobin 27.9 pg (28.0-32.0); Mean Corpuscular Hgb Conc. 32.5 g/dL (32.0-36.0); Mean Corpuscular Volume 85.7 fL (80.0-100.0); Monocytes # (auto) 0.2 10 ^3/uL (0-1.3); Neutrophils # (auto) 5.7 10 ^3/uL (1.6-8.6); Neutrophils % (auto) 93.5 % (37.0-80.0); Nucleated Red Blood Cells % 0.1 %; Red Blood Cells 3.48 10^6/uL (4.0-5.20); Red Cell Distribution Width 17.5 % (11.8-14.3); White Blood Cell 6.1 10^3/uL (4.4-10.8)
[2023-03-16] MEDS: methylPREDNISolone SOD SUCC 40 MG/ML VL IV SCH ×3 (05:39→21:51)
[2023-03-16] MEDS: MEROPENEM 1GM IVPB 100 ML IV SCH ×3 (05:39→21:50)
[2023-03-16] MEDS: LEVALBUTEROL HCL 1.25 MG/3 ML NEB NEB SCH ×4 (06:00→23:39)
[2023-03-16] MEDS: IPRATROPIUM BROM 0.5 MG/2.5ML INH SOL NEB SCH ×4 (06:27→23:39)
[2023-03-16] MEDS: ACETYLCYSTEINE 20%(200MG/ML) SOL 4ML NEB SCH ×4 (06:27→23:39)
[2023-03-16] MEDS: APIXABAN 5 MG TAB PO SCH ×2 (08:02→21:51)
[2023-03-16] MEDS: PANTOPRAZOLE 40 MG/10 ML VIAL INJ IV SCH (08:02)
[2023-03-16] MEDS: METOPROLOL TARTRATE 25 MG TAB PO SCH ×2 (08:02→21:51)
[2023-03-16 08:26] LABS: Base Excess 4.9 mmol/L (-2.0-2.0)
[2023-03-16] MEDS: MIDAZOLAM DRIP 50 mg/50mL 50 ML IV SCH (10:11)
[2023-03-16] MEDS: NOREPINEPHRINE 8 MG/250ML KIT 250 ML IV SCH (10:11)
[2023-03-17] VITALS (105 sets, daily range): BP systolic 97–167; BP diastolic 46–82; PULSE 60–116; RESP 13–30; TEMP 97.2–99; O2SAT 89–100
[2023-03-17 04:22] LABS: Basophils # (auto) 0 10 ^3/uL (0-0.2); Eosinophils # (auto) 0 10 ^3/uL (0-0.8); Hematocrit 30.6 % (36.0-46.0); Hemoglobin 9.9 g/dL (12.2-16.2); Lymphocytes # (auto) 0.1 10 ^3/uL (0.4-5.4); Lymphocytes % (auto) 1.2 % (10.0-50.0); Mean Corpuscular Hemoglobin 27.5 pg (28.0-32.0); Mean Corpuscular Hgb Conc. 32.2 g/dL (32.0-36.0); Mean Corpuscular Volume 85.4 fL (80.0-100.0); Monocytes # (auto) 0.4 10 ^3/uL (0-1.3); Monocytes % (auto) 5.6 % (0.0-12.0); Neutrophils # (auto) 7.3 10 ^3/uL (1.6-8.6); Neutrophils % (auto) 93.2 % (37.0-80.0); Nucleated Red Blood Cells % 0.1 %; Red Blood Cells 3.59 10^6/uL (4.0-5.20); Red Cell Distribution Width 17.3 % (11.8-14.3); White Blood Cell 7.8 10^3/uL (4.4-10.8)
[2023-03-17 04:23] LABS: Chloride 105 mmol/L (98-107); Potassium 4.1 mmol/L (3.5-5.1); Sodium 141 mmol/L (136-145)
[2023-03-17 04:24] LABS: Anion Gap 7 (5-15); Carbon Dioxide 29 mmol/L (20-30)
[2023-03-17 04:25] LABS: Calcium 8.8 mg/dL (8.7-10.4)
[2023-03-17 04:30] LABS: BUN/Creatinine Ratio 42.3 (10.0-20.0); Blood Urea Nitrogen 22 mg/dL (9-23); Glucose 129 mg/dL (74-106)
[2023-03-17] MEDS: FREE WATER NG SCH ×4 (06:02→23:57)
[2023-03-17] MEDS: methylPREDNISolone SOD SUCC 40 MG/ML VL IV SCH ×3 (06:02→21:50)
[2023-03-17] MEDS: MEROPENEM 1GM IVPB 100 ML IV SCH ×3 (06:02→21:51)
[2023-03-17] MEDS: LEVALBUTEROL HCL 1.25 MG/3 ML NEB NEB SCH ×3 (06:09→18:46)
[2023-03-17] MEDS: IPRATROPIUM BROM 0.5 MG/2.5ML INH SOL NEB SCH ×3 (06:09→18:47)
[2023-03-17] MEDS: ACETYLCYSTEINE 20%(200MG/ML) SOL 4ML NEB SCH ×3 (06:09→18:47)
[2023-03-17] MEDS: APIXABAN 5 MG TAB PO SCH ×2 (09:35→21:50)
[2023-03-17] MEDS: PROPOFOL 100 ML IV SCH ×3 (09:35→22:58)
[2023-03-17] MEDS: METOPROLOL TARTRATE 25 MG TAB PO SCH ×2 (09:35→21:50)
[2023-03-17] MEDS: PANTOPRAZOLE 40 MG/10 ML VIAL INJ IV SCH (09:35)
[2023-03-17] MEDS: NOREPINEPHRINE 8 MG/250ML KIT 250 ML IV SCH (10:45)
[2023-03-17] MEDS: MIDAZOLAM DRIP 50 mg/50mL 50 ML IV SCH (11:00)
[2023-03-17] MEDS: fentaNYL Drip 2500mCg/250mlNS 250 ML IV SCH ×2 (11:00→23:01)
[2023-03-17] MEDS: VANCOMYCIN 1GM/250ML 250 ML IV SCH (11:43)
[2023-03-17] MEDS ORDERED: Jevity 1.2 Cal/Fiber 1 Liter GT SCH (11:45)
[2023-03-18] VITALS (88 sets, daily range): BP systolic 117–180; BP diastolic 49–90; PULSE 54–131; RESP 11–42; TEMP 97.5–98.8; O2SAT 79–100
[2023-03-18] MEDS: LEVALBUTEROL HCL 1.25 MG/3 ML NEB NEB SCH ×5 (00:12→22:18)
[2023-03-18] MEDS: IPRATROPIUM BROM 0.5 MG/2.5ML INH SOL NEB SCH ×4 (00:12→22:19)
[2023-03-18] MEDS: ACETYLCYSTEINE 20%(200MG/ML) SOL 4ML NEB SCH ×4 (00:12→22:19)
[2023-03-18] MEDS: VANCOMYCIN 1GM/250ML 250 ML IV SCH ×2 (03:48→20:05)
[2023-03-18 04:22] LABS: Anion Gap 7 (5-15); Carbon Dioxide 30 mmol/L (20-30); Chloride 105 mmol/L (98-107); Potassium 4.2 mmol/L (3.5-5.1); Sodium 142 mmol/L (136-145)
[2023-03-18 04:23] LABS: Calcium 8.6 mg/dL (8.7-10.4)
[2023-03-18 04:28] LABS: BUN/Creatinine Ratio 40.4 (10.0-20.0); Blood Urea Nitrogen 21 mg/dL (9-23); Glucose 151 mg/dL (74-106)
[2023-03-18 04:37] LABS: Basophils # (auto) 0 10 ^3/uL (0-0.2); Basophils % (auto) 0.1 % (0.0-2.0); Eosinophils # (auto) 0 10 ^3/uL (0-0.8); Hematocrit 28.4 % (36.0-46.0); Hemoglobin 9.3 g/dL (12.2-16.2); Lymphocytes # (auto) 0.1 10 ^3/uL (0.4-5.4); Lymphocytes % (auto) 1.4 % (10.0-50.0); Mean Corpuscular Hemoglobin 27.9 pg (28.0-32.0); Mean Corpuscular Hgb Conc. 32.9 g/dL (32.0-36.0); Mean Corpuscular Volume 84.9 fL (80.0-100.0); Monocytes # (auto) 0.4 10 ^3/uL (0-1.3); Monocytes % (auto) 4.6 % (0.0-12.0); Neutrophils % (auto) 93.9 % (37.0-80.0); Nucleated Red Blood Cells % 0.1 %; Red Blood Cells 3.35 10^6/uL (4.0-5.20); Red Cell Distribution Width 17.5 % (11.8-14.3); White Blood Cell 9.6 10^3/uL (4.4-10.8)
[2023-03-18] MEDS: methylPREDNISolone SOD SUCC 40 MG/ML VL IV SCH ×3 (05:32→21:56)
[2023-03-18] MEDS: FREE WATER NG SCH ×3 (05:33→17:58)
[2023-03-18] MEDS: MEROPENEM 1GM IVPB 100 ML IV SCH ×3 (05:33→21:55)
[2023-03-18] MEDS: PANTOPRAZOLE 40 MG/10 ML VIAL INJ IV SCH (09:14)
[2023-03-18] MEDS: METOPROLOL TARTRATE 25 MG TAB PO SCH ×2 (09:14→21:56)
[2023-03-18] MEDS: APIXABAN 5 MG TAB PO SCH ×2 (09:14→21:56)
[2023-03-18] MEDS: NOREPINEPHRINE 8 MG/250ML KIT 250 ML IV SCH (10:45)
[2023-03-18] MEDS: MIDAZOLAM DRIP 50 mg/50mL 50 ML IV SCH (11:00)
[2023-03-18 13:09] LABS: Base Excess 3.7 mmol/L (-2.0-2.0)
[2023-03-18] MEDS: hydrALAZINE HCL 20 MG/ML VL IV PRN (17:08)
[2023-03-18] MEDS: LORazepam 2MG/ML-1ML VIAL IV PRN (17:31)
[2023-03-19] VITALS (64 sets, daily range): BP systolic 125–161; BP diastolic 52–109; PULSE 66–109; RESP 13–40; TEMP 98.1–99.3; O2SAT 94–100
[2023-03-19] MEDS: LEVALBUTEROL HCL 1.25 MG/3 ML NEB NEB SCH ×6 (02:06→22:29)
[2023-03-19] MEDS: IPRATROPIUM BROM 0.5 MG/2.5ML INH SOL NEB SCH ×6 (02:06→22:29)
[2023-03-19 04:24] LABS: Calcium 9.1 mg/dL (8.7-10.4); Chloride 103 mmol/L (98-107); Potassium 4.2 mmol/L (3.5-5.1); Sodium 140 mmol/L (136-145)
[2023-03-19 04:25] LABS: Anion Gap 7 (5-15); Carbon Dioxide 30 mmol/L (20-30)
[2023-03-19 04:30] LABS: BUN/Creatinine Ratio 38.8 (10.0-20.0); Blood Urea Nitrogen 19 mg/dL (9-23); Glucose 116 mg/dL (74-106)
[2023-03-19 04:35] LABS: Basophils # (auto) 0 10 ^3/uL (0-0.2); Eosinophils # (auto) 0 10 ^3/uL (0-0.8); Hematocrit 34.5 % (36.0-46.0); Hemoglobin 10.9 g/dL (12.2-16.2); Lymphocytes # (auto) 0.3 10 ^3/uL (0.4-5.4); Lymphocytes % (auto) 1.7 % (10.0-50.0); Mean Corpuscular Hemoglobin 27.1 pg (28.0-32.0); Mean Corpuscular Hgb Conc. 31.6 g/dL (32.0-36.0); Mean Corpuscular Volume 85.6 fL (80.0-100.0); Monocytes # (auto) 0.5 10 ^3/uL (0-1.3); Monocytes % (auto) 3.2 % (0.0-12.0); Neutrophils # (auto) 15.5 10 ^3/uL (1.6-8.6); Neutrophils % (auto) 95.1 % (37.0-80.0); Red Blood Cells 4.03 10^6/uL (4.0-5.20); Red Cell Distribution Width 17.1 % (11.8-14.3); White Blood Cell 16.3 10^3/uL (4.4-10.8)
[2023-03-19] MEDS: MEROPENEM 1GM IVPB 100 ML IV SCH ×3 (05:33→21:43)
[2023-03-19] MEDS: methylPREDNISolone SOD SUCC 40 MG/ML VL IV SCH ×3 (05:35→20:59)
[2023-03-19] MEDS: ACETYLCYSTEINE 20%(200MG/ML) SOL 4ML NEB SCH ×3 (06:34→22:30)
[2023-03-19] MEDS: PANTOPRAZOLE 40 MG/10 ML VIAL INJ IV SCH (09:03)
[2023-03-19] MEDS: APIXABAN 5 MG TAB PO SCH ×2 (09:37→21:43)
[2023-03-19] MEDS: METOPROLOL TARTRATE 25 MG TAB PO SCH ×2 (09:37→21:44)
[2023-03-19] MEDS: NOREPINEPHRINE 8 MG/250ML KIT 250 ML IV SCH (10:45)
[2023-03-19] MEDS: MIDAZOLAM DRIP 50 mg/50mL 50 ML IV SCH (11:00)
[2023-03-19] MEDS: fentaNYL Drip 2500mCg/250mlNS 250 ML IV SCH (11:00)
[2023-03-19] MEDS: VANCOMYCIN 1GM/250ML 250 ML IV SCH (11:41)
[2023-03-19] MEDS: MORPHINE SULFATE INJ 2 MG/ml SYRG IV PRN ×2 (14:18→19:57)
[2023-03-19] MEDS: PROPOFOL 100 ML IV SCH (14:45)
[2023-03-19] MEDS: LORazepam 2MG/ML-1ML VIAL IV PRN (20:57)
[2023-03-20] VITALS (34 sets, daily range): BP systolic 139–162; BP diastolic 67–88; PULSE 74–120; RESP 15–33; TEMP 97.7–99.3; O2SAT 88–100
[2023-03-20] MEDS: MORPHINE SULFATE INJ 2 MG/ml SYRG IV PRN (02:13)
[2023-03-20] MEDS: IPRATROPIUM BROM 0.5 MG/2.5ML INH SOL NEB SCH ×3 (02:38→10:15)
[2023-03-20] MEDS: LEVALBUTEROL HCL 1.25 MG/3 ML NEB NEB SCH ×3 (02:39→10:15)
[2023-03-20] MEDS: VANCOMYCIN 1GM/250ML 250 ML IV SCH (03:56)
[2023-03-20] MEDS: MEROPENEM 1GM IVPB 100 ML IV SCH (05:55)
[2023-03-20] MEDS: methylPREDNISolone SOD SUCC 40 MG/ML VL IV SCH (05:56)
[2023-03-20] MEDS: ACETYLCYSTEINE 20%(200MG/ML) SOL 4ML NEB SCH (06:34)
[2023-03-20] MEDS: LORazepam 2MG/ML-1ML VIAL IV PRN (10:01)
[2023-03-20] MEDS: NOREPINEPHRINE 8 MG/250ML KIT 250 ML IV SCH (10:45)
== END 2023-03-20 12:30 | disposition hospice, home (50) | DRG 870 ==
LOC: ER 15:11 → EDBD 15:11 → TELE 17:08 → ICU WEST 23:03 → ICU CENTRL 03-19 18:20
PROVIDERS: ADMIT Internal Medicine; ATTEND Student in an Organized Health Care Education/Training Program
PROC: 0BH17EZ Insertion of Endotracheal Airway into Trachea, Via Natural or Artificial Opening (ICD-10-PCS; 2023-03-07)
PROC: 5A1945Z Respiratory Ventilation, 24-96 Consecutive Hours (ICD-10-PCS; 2023-03-07)
PROC: 02HV33Z Insertion of Infusion Device into Superior Vena Cava, Percutaneous Approach (ICD-10-PCS; 2023-03-07)
PROC: 5A09357 Assistance with Respiratory Ventilation, Less than 24 Consecutive Hours, Continuous Positive Airway Pressure (ICD-10-PCS; 2023-03-09)
PROC: 5A1955Z Respiratory Ventilation, Greater than 96 Consecutive Hours (ICD-10-PCS; principal; 2023-03-10)
PROC: 5A09357 Assistance with Respiratory Ventilation, Less than 24 Consecutive Hours, Continuous Positive Airway Pressure (ICD-10-PCS; 2023-03-10)
PROC: 5A09357 Assistance with Respiratory Ventilation, Less than 24 Consecutive Hours, Continuous Positive Airway Pressure (ICD-10-PCS; 2023-03-18)
PROC: 5A1935Z Respiratory Ventilation, Less than 24 Consecutive Hours (ICD-10-PCS; 2023-03-18)
PROC: 5A09357 Assistance with Respiratory Ventilation, Less than 24 Consecutive Hours, Continuous Positive Airway Pressure (ICD-10-PCS; 2023-03-19)
PROC: 5A1935Z Respiratory Ventilation, Less than 24 Consecutive Hours (ICD-10-PCS; 2023-03-19)
PROC: 5A09357 Assistance with Respiratory Ventilation, Less than 24 Consecutive Hours, Continuous Positive Airway Pressure (ICD-10-PCS; 2023-03-20)
PROC: 5A1935Z Respiratory Ventilation, Less than 24 Consecutive Hours (ICD-10-PCS; 2023-03-20)
DX: A41.9 Sepsis, unspecified organism (principal); J15.1 Pneumonia due to Pseudomonas; J96.21 Acute and chronic respiratory failure with hypoxia; R65.21 Severe sepsis with septic shock; J44.1 Chronic obstructive pulmonary disease with (acute) exacerbation; E87.0 Hyperosmolality and hypernatremia; J44.0 Chronic obstructive pulmonary disease with (acute) lower respiratory infection; I48.20 Chronic atrial fibrillation, unspecified; D68.59 Other primary thrombophilia; Z20.822 Contact with and (suspected) exposure to COVID-19; E78.5 Hyperlipidemia, unspecified; E87.6 Hypokalemia; F32.9 Major depressive disorder, single episode, unspecified; I11.0 Hypertensive heart disease with heart failure; I25.10 Atherosclerotic heart disease of native coronary artery without angina pectoris; I50.9 Heart failure, unspecified; I48.0 Paroxysmal atrial fibrillation; I27.20 Pulmonary hypertension, unspecified; J43.9 Emphysema, unspecified; B96.89 Other specified bacterial agents as the cause of diseases classified elsewhere; Z87.891 Personal history of nicotine dependence; Z80.1 Family history of malignant neoplasm of trachea, bronchus and lung; Z82.49 Family history of ischemic heart disease and other diseases of the circulatory system; Z83.3 Family history of diabetes mellitus; Z88.5 Allergy status to narcotic agent
CPT/HCPCS: 31500; 36415; 36556; 36600; 71045; 71250; 80048; 80053; 80202; 82805; 83605; 83735; 83880; 84295; 84484; 85025; 85610; 85730; 87040; 87070; 87077; 87081; 87086; 87186; 87205; 87426; 87804; 93005; 93306; 94002; 94003; 94640; 94660; 99291; C9113; G0378; J0330; J2185; J2250; J2405; J2543; J2704; J3480; J3490; J7060